=== PATIENT | male | born 1980 | race African-American/Black ===

== ENCOUNTER 2018-01-10 20:27 | Emergency (ER) | payer SELFPAY ==
[~2018-01-10] VITALS: Ht 188 cm; Wt 97.5 kg
[2018-01-10 20:50] VITALS: BP 156/88
[2018-01-10] MEDS ORDERED: KETOROLAC TROMETH 60MG/2ML VIAL IM ONE (21:30)
== END 2018-01-10 22:32 | disposition home or self-care (01) ==
LOC: ER 20:27
DX: M54.5 Low back pain (principal)
CPT/HCPCS: 72100; 96372; 99284; J1885